=== PATIENT | female | born 1945 | race Two or more races ===

== ENCOUNTER → 2020-10-02 | Outpatient (CLI) | payer MEDICARE | END | disposition home or self-care (01) | LOC: MSC 14:30 | PROVIDERS: ATTEND Internal Medicine | DX: Z09 Encounter for follow-up examination after completed treatment for conditions other than malignant neoplasm (principal); Z86.73 Personal history of transient ischemic attack (TIA), and cerebral infarction without residual deficits; D63.8 Anemia in other chronic diseases classified elsewhere; E11.22 Type 2 diabetes mellitus with diabetic chronic kidney disease; I13.0 Hypertensive heart and chronic kidney disease with heart failure and stage 1 through stage 4 chronic kidney disease, or unspecified chronic kidney disease; N18.4 Chronic kidney disease, stage 4 (severe); I50.9 Heart failure, unspecified; Z79.4 Long term (current) use of insulin; Z87.891 Personal history of nicotine dependence; E89.0 Postprocedural hypothyroidism; R13.10 Dysphagia, unspecified; R32 Unspecified urinary incontinence; G31.9 Degenerative disease of nervous system, unspecified; K21.9 Gastro-esophageal reflux disease without esophagitis; E66.9 Obesity, unspecified ==

== ENCOUNTER 2023-07-25 22:39 | Inpatient (IN) | payer MEDICARE, OTHER ==
[~2023-07-25] VITALS: Ht 160 cm; Wt 72.7 kg
[2023-07-26 00:53] LABS: CALCIUM, SERUM 10.3 mg/dL (8.5-10.1); CARBON DIOXIDE 28 mmol/L (21-32); CHLORIDE 90 mmol/L (98-107); CREATININE 3.5 mg/dL (0.6-1.3); GLUCOSE 189 mg/dL (74-106); POTASSIUM 5.1 mmol/L (3.5-5.1); SODIUM SERUM 127 mmol/L (136-145); UREA NITROGEN, BLOOD 65 mg/dL (7-18)
[2023-07-26 01:05] LABS: BASOPHILS % (AUTO) 0.3 % (0.0-2.0); EOSINOPHILS # (AUTO) 0.1 K/uL (0.0-0.7); EOSINOPHILS % (AUTO) 3.4 % (0.0-6.0); HEMATOCRIT 37 % (33-45); HEMOGLOBIN 12.2 g/dL (11.5-14.8); LYMPHOCYTES # (AUTO) 0.6 K/uL (0.8-4.8); LYMPHOCYTES % (AUTO) 21.1 % (20.0-44.0); MEAN CORPUSCULAR HEMOGLOBIN 28 PG (26.0-33.0); MEAN CORPUSCULAR HGB CONC 33 g/dl (31.0-36.0); MEAN CORPUSCULAR VOLUME 87 fL (82-100); MONOCYTES # (AUTO) 0.4 K/uL (0.1-1.30); NEUTROPHILS # (AUTO) 1.9 K/uL (1.8-8.9); NEUTROPHILS % (AUTO) 61.2 % (43.0-81.0); RED CELL DISTRIBUTION WIDTH 21.9 % (11.5-15.0)
[2023-07-26 01:08] LABS: ALANINE AMINOTRANSFERASE 39 U/L (12-78); ALBUMIN 3.1 g/dL (3.4-5.0); ALKALINE PHOSPHATASE 630 U/L (46-116); ASPARTATE AMINOTRANSFERASE 73 U/L (15-37); BILIRUBIN,DIRECT 0.4 mg/dL (0.0-0.2); NT-PRO BNP > 25000 pg/mL (0-125)
[2023-07-26 01:10] LABS: INR 1.27 (0.91-1.10); PROTHROMBIN TIME 13.3 SECS (9.2-11.1)
[2023-07-26 01:12] LABS: PLATELET COUNT (AUTO) 43 K/uL (150-450)
[2023-07-26] MEDS ORDERED: FUROSEMIDE 40 MG/4 ML VIAL IV ONE (01:30)
[2023-07-26] MEDS ORDERED: FUROSEMIDE 40 MG/4 ML VIAL ONE (01:31)
[2023-07-26 02:09] LABS: EOSINOPHILS % (MANUAL) 2 % (0-4); LYMPHOCYTES % (MANUAL) 24 % (16-48); MONOCYTES % (MANUAL) 8 % (0-11.0); NEUTROPHILS % (MANUAL) 66 (42-76)
[2023-07-26 02:10] LABS: ANISOCYTOSIS 1+; OVALOCYTES 1+; PLATELET ESTIMATE DECREASED
[2023-07-26] MEDS ORDERED: ONDANSETRON HCL/PF 4 MG/2 ML VIAL IVP PRN (02:30)
[2023-07-26] MEDS ORDERED: MORPHINE SULFATE INJ 2 MG/ML DISP.SYRIN IV PRN (02:30)
[2023-07-26] MEDS ORDERED: ACETAMINOPHEN 325 MG TABLET PO PRN (02:30)
[2023-07-26] MEDS ORDERED: DEXTROSE 50%-WATER 50 ML DISP.SYRIN IV PRN (02:30)
[2023-07-26 03:39] VITALS: BP 148/110; TEMP 97.5; O2SAT 100
[2023-07-26] MEDS: BLOOD SUGAR DIAGNOSTIC 1 EACH STRIP IN SCH ×4 (06:30→21:43)
[2023-07-26] MEDS: INSULIN REGULAR, HUMAN 100 UNIT/ML 3 ML VIAL SQ PRN ×2 (06:31→21:44)
[2023-07-26 08:00] VITALS: BP 182/56; TEMP 98.1; O2SAT 96
[2023-07-26] MEDS ORDERED: ZINC56.713 TP (08:41)
[2023-07-26] MEDS ORDERED: AMMO225L14 TP (08:41)
[2023-07-26] MEDS ORDERED: PANT40SU2 GT (08:41)
[2023-07-26] MEDS ORDERED: LEVO112T2 GT (08:41)
[2023-07-26] MEDS ORDERED: METO25TA20 GT (08:41)
[2023-07-26] MEDS ORDERED: QUET25TA GT (08:41)
[2023-07-26] MEDS ORDERED: AMLO-212 GT (08:41)
[2023-07-26] MEDS ORDERED: BISA10SU11 RC (08:41)
[2023-07-26] MEDS ORDERED: PREG25CA GT (08:41)
[2023-07-26] MEDS ORDERED: AMIO200T5 GT (08:41)
[2023-07-26] MEDS ORDERED: ACET650S26 GT (08:41)
[2023-07-26] MEDS ORDERED: VALB40CA2 GT (08:41)
[2023-07-26] MEDS ORDERED: AMIN30LI27 GT (08:41)
[2023-07-26] MEDS ORDERED: VALS80TA2 GT (08:41)
[2023-07-26] MEDS ORDERED: ONDA4TAB5 GT (08:41)
[2023-07-26] MEDS ORDERED: SENN-261 GT (08:41)
[2023-07-26] MEDS ORDERED: INSU100V11 SQ (08:41)
[2023-07-26] MEDS ORDERED: IPRA3AMP23 IH (08:41)
[2023-07-26] MEDS ORDERED: NUT.237L67 GT (08:41)
[2023-07-26] MEDS ORDERED: OXCA150T5 GT (08:41)
[2023-07-26] MEDS ORDERED: ATOR40TA GT (08:41)
[2023-07-26] MEDS ORDERED: DIVA125C5 GT (08:41)
[2023-07-26] MEDS ORDERED: HYDR-4076 GT ×2 (08:41)
[2023-07-26] MEDS: HEPARIN SODIUM, PORCINE 5000 UNITS/1 ML VIAL SQ SCH ×2 (09:00→21:43)
[2023-07-26 09:30] VITALS: BP 149/42; O2SAT 100
[2023-07-26] MEDS ORDERED: hydrALAZINE HCL 25 MG TABLET GT PRN (10:00)
[2023-07-26] MEDS: AMLODIPINE BESYLATE 5 MG TABLET GT SCH (10:00)
[2023-07-26] MEDS: METOPROLOL TARTRATE 25 MG TABLET GT SCH ×2 (10:00→17:00)
[2023-07-26] MEDS: hydrALAZINE HCL 25 MG TABLET GT SCH ×3 (10:00→17:00)
[2023-07-26] MEDS: VALSARTAN 80 MG TABLET GT SCH (10:00)
[2023-07-26] MEDS: LEVOTHYROXINE SODIUM 112 MCG TABLET GT SCH (10:41)
[2023-07-26] MEDS: OXCARBAZEPINE 150 MG TABLET GT SCH ×3 (10:41→18:03)
[2023-07-26] MEDS: PANTOPRAZOLE 40 MG/PACK PACK GT SCH (10:41)
[2023-07-26] MEDS: PREGABALIN 25 MG CAPSULE GT SCH ×2 (10:41→18:03)
[2023-07-26] MEDS: DIVALPROEX SODIUM 125 MG CAP.SPRINK GT SCH (10:41)
[2023-07-26 12:00] VITALS: BP 136/52; TEMP 98.1; O2SAT 96
[2023-07-26] MEDS: NEPRO 1,000 ML BOTTLE GT SCH (12:37)
[2023-07-26] MEDS ORDERED: NEPRO VAN 237 ML CAN GT SCH (13:00)
[2023-07-26 16:00] VITALS: BP 140/42; TEMP 98.1; O2SAT 96
[2023-07-26 20:00] VITALS: BP 163/48; TEMP 97.6; O2SAT 93
[2023-07-26] MEDS ORDERED: Medication Not On Formulary EA (Valbenazine Tosylate (Ingrezza) 40 MG) GT SCH (22:00)
[2023-07-27] VITALS: BP 160/71; TEMP 97.7; O2SAT 96
[2023-07-27 05:07] VITALS: BP 160/65; TEMP 97.8; O2SAT 95
[2023-07-27 05:53] LABS: BASOPHILS % (AUTO) 0.5 % (0.0-2.0); EOSINOPHILS # (AUTO) 0.1 K/uL (0.0-0.7); EOSINOPHILS % (AUTO) 2.6 % (0.0-6.0); HEMATOCRIT 34 % (33-45); HEMOGLOBIN 11.1 g/dL (11.5-14.8); LYMPHOCYTES # (AUTO) 0.7 K/uL (0.8-4.8); MEAN CORPUSCULAR HEMOGLOBIN 28 PG (26.0-33.0); MEAN CORPUSCULAR HGB CONC 32 g/dl (31.0-36.0); MEAN CORPUSCULAR VOLUME 86 fL (82-100); MONOCYTES # (AUTO) 0.5 K/uL (0.1-1.30); MONOCYTES % (AUTO) 12.7 % (2.0-12.0); NEUTROPHILS # (AUTO) 2.5 K/uL (1.8-8.9); NEUTROPHILS % (AUTO) 66.2 % (43.0-81.0); PLATELET COUNT (AUTO) 63 K/uL (150-450); RED BLOOD CELL COUNT(AUTO) 3.97 MIL/uL (4.0-5.2); RED CELL DISTRIBUTION WIDTH 21.3 % (11.5-15.0); WHITE BLOOD COUNT (AUTO) 3.7 K/uL (4.3-11.0)
[2023-07-27 06:07] LABS: ALANINE AMINOTRANSFERASE 49 U/L (12-78); ALBUMIN 2.7 g/dL (3.4-5.0); ALKALINE PHOSPHATASE 561 U/L (46-116); ASPARTATE AMINOTRANSFERASE 71 U/L (15-37); BILIRUBIN,TOTAL 0.9 mg/dL (0.2-1.0); CALCIUM, SERUM 9.4 mg/dL (8.5-10.1); CARBON DIOXIDE 29 mmol/L (21-32); CHLORIDE 98 mmol/L (98-107); GLUCOSE 151 mg/dL (74-106); MAGNESIUM 2.5 mg/dL (1.8-2.4); PHOSPHORUS 2.3 mg/dL (2.5-4.9); POTASSIUM 3.8 mmol/L (3.5-5.1); SODIUM SERUM 135 mmol/L (136-145); TOTAL PROTEIN, SERUM 7.1 g/dL (6.4-8.2); UREA NITROGEN, BLOOD 44 mg/dL (7-18)
[2023-07-27] MEDS: INSULIN REGULAR, HUMAN 100 UNIT/ML 3 ML VIAL SQ PRN ×4 (06:31→20:59)
[2023-07-27] MEDS: BLOOD SUGAR DIAGNOSTIC 1 EACH STRIP IN SCH ×4 (06:33→21:00)
[2023-07-27 07:17] LABS: BAND % (MANUAL) 1 % (0.0-5.0); EOSINOPHILS % (MANUAL) 2 % (0-4); LYMPHOCYTES % (MANUAL) 24 % (16-48); MONOCYTES % (MANUAL) 7 % (0-11.0); NEUTROPHILS % (MANUAL) 66 (42-76)
[2023-07-27 07:18] LABS: ANISOCYTOSIS 1+; PLATELET ESTIMATE DECREASED
[2023-07-27 08:00] VITALS: BP 191/64; TEMP 98.4; O2SAT 94
[2023-07-27] MEDS ORDERED: NEUTRA PHOS 1 POWD.PACKET PO ONE (08:30)
[2023-07-27] MEDS: HEPARIN SODIUM, PORCINE 5000 UNITS/1 ML VIAL SQ SCH ×2 (09:00→20:54)
[2023-07-27] MEDS: DIVALPROEX SODIUM 125 MG CAP.SPRINK GT SCH (10:01)
[2023-07-27] MEDS: hydrALAZINE HCL 25 MG TABLET GT SCH ×3 (10:01→17:00)
[2023-07-27] MEDS: VALSARTAN 80 MG TABLET GT SCH ×2 (10:02→17:59)
[2023-07-27] MEDS: METOPROLOL TARTRATE 25 MG TABLET GT SCH ×2 (10:02→17:00)
[2023-07-27] MEDS: PREGABALIN 25 MG CAPSULE GT SCH ×2 (10:02→18:00)
[2023-07-27] MEDS: OXCARBAZEPINE 150 MG TABLET GT SCH ×3 (10:03→18:00)
[2023-07-27] MEDS: AMLODIPINE BESYLATE 5 MG TABLET GT SCH (10:03)
[2023-07-27] MEDS: LEVOTHYROXINE SODIUM 112 MCG TABLET GT SCH (10:03)
[2023-07-27] MEDS: PANTOPRAZOLE 40 MG/PACK PACK GT SCH (10:03)
[2023-07-27 10:39] LABS: THYROID STIMULATING HORMONE 2.17 uIU/mL (0.358-3.74)
[2023-07-27 12:00] VITALS: BP 147/55; TEMP 99.1; O2SAT 100
[2023-07-27] MEDS: NEPRO 1,000 ML BOTTLE GT SCH (14:42)
[2023-07-27 16:00] VITALS: BP 165/58; TEMP 98.9; O2SAT 100
[2023-07-27 20:00] VITALS: BP 153/58; TEMP 97.5; O2SAT 100
[2023-07-28] VITALS (9 sets, daily range): BP systolic 136–182; BP diastolic 33–78; TEMP 97.5–98.7; O2SAT 100
[2023-07-28] MEDS: hydrALAZINE HCL IV 20 MG VIAL IV PRN (03:19)
[2023-07-28] MEDS: BLOOD SUGAR DIAGNOSTIC 1 EACH STRIP IN SCH ×4 (06:44→22:53)
[2023-07-28] MEDS: INSULIN REGULAR, HUMAN 100 UNIT/ML 3 ML VIAL SQ PRN ×3 (06:46→18:03)
[2023-07-28 07:17] LABS: BASOPHILS % (AUTO) 0.5 % (0.0-2.0); EOSINOPHILS # (AUTO) 0.1 K/uL (0.0-0.7); EOSINOPHILS % (AUTO) 3.3 % (0.0-6.0); HEMATOCRIT 36 % (33-45); HEMOGLOBIN 11.6 g/dL (11.5-14.8); LYMPHOCYTES # (AUTO) 0.6 K/uL (0.8-4.8); LYMPHOCYTES % (AUTO) 18.5 % (20.0-44.0); MEAN CORPUSCULAR HEMOGLOBIN 28 PG (26.0-33.0); MEAN CORPUSCULAR HGB CONC 32 g/dl (31.0-36.0); MEAN CORPUSCULAR VOLUME 87 fL (82-100); MONOCYTES # (AUTO) 0.5 K/uL (0.1-1.30); MONOCYTES % (AUTO) 13.4 % (2.0-12.0); NEUTROPHILS # (AUTO) 2.2 K/uL (1.8-8.9); NEUTROPHILS % (AUTO) 64.3 % (43.0-81.0); PLATELET COUNT (AUTO) 75 K/uL (150-450); RED BLOOD CELL COUNT(AUTO) 4.11 MIL/uL (4.0-5.2); RED CELL DISTRIBUTION WIDTH 21.6 % (11.5-15.0); WHITE BLOOD COUNT (AUTO) 3.4 K/uL (4.3-11.0)
[2023-07-28 07:55] LABS: ALANINE AMINOTRANSFERASE 49 U/L (12-78); ALBUMIN 2.9 g/dL (3.4-5.0); ALKALINE PHOSPHATASE 579 U/L (46-116); ASPARTATE AMINOTRANSFERASE 76 U/L (15-37); BILIRUBIN,TOTAL 0.9 mg/dL (0.2-1.0); CALCIUM, SERUM 9.9 mg/dL (8.5-10.1); CARBON DIOXIDE 25 mmol/L (21-32); CHLORIDE 101 mmol/L (98-107); CREATININE 2.9 mg/dL (0.6-1.3); GLUCOSE 148 mg/dL (74-106); MAGNESIUM 2.5 mg/dL (1.8-2.4); PHOSPHORUS 2.1 mg/dL (2.5-4.9); POTASSIUM 3.4 mmol/L (3.5-5.1); SODIUM SERUM 138 mmol/L (136-145); TOTAL PROTEIN, SERUM 7.4 g/dL (6.4-8.2); UREA NITROGEN, BLOOD 40 mg/dL (7-18)
[2023-07-28] MEDS ORDERED: QUETIAPINE FUMARATE 25 MG TABLET GT SCH (09:00)
[2023-07-28] MEDS: METOPROLOL TARTRATE 25 MG TABLET GT SCH ×2 (09:00→17:00)
[2023-07-28] MEDS: HEPARIN SODIUM, PORCINE 5000 UNITS/1 ML VIAL SQ SCH ×2 (09:00→22:07)
[2023-07-28] MEDS: NITROGLYCERIN 30 GM TUBE TP SCH ×2 (09:30→21:33)
[2023-07-28] MEDS: DIVALPROEX SODIUM 125 MG CAP.SPRINK GT SCH (10:24)
[2023-07-28] MEDS: OXCARBAZEPINE 150 MG TABLET GT SCH ×3 (10:25→18:05)
[2023-07-28] MEDS: VALSARTAN 80 MG TABLET GT SCH ×2 (10:25→17:00)
[2023-07-28] MEDS: PREGABALIN 25 MG CAPSULE GT SCH ×2 (10:25→18:05)
[2023-07-28] MEDS: LEVOTHYROXINE SODIUM 112 MCG TABLET GT SCH (10:26)
[2023-07-28] MEDS: AMLODIPINE BESYLATE 5 MG TABLET GT SCH (10:26)
[2023-07-28] MEDS: PANTOPRAZOLE 40 MG/PACK PACK GT SCH (10:26)
[2023-07-28 11:24] LABS: BAND % (MANUAL) 1 % (0.0-5.0); EOSINOPHILS % (MANUAL) 1 % (0-4); LYMPHOCYTES % (MANUAL) 21 % (16-48); MONOCYTES % (MANUAL) 6 % (0-11.0); NEUTROPHILS % (MANUAL) 71 (42-76); PLATELET ESTIMATE DECREASED
[2023-07-28] MEDS: hydrALAZINE HCL 25 MG TABLET GT SCH ×2 (12:19→17:00)
[2023-07-28] MEDS: NEPRO 1,000 ML BOTTLE GT SCH (23:57)
[2023-07-29 03:06] LABS: HEPATITIS B SURFACE AB Reactive (.)
[2023-07-29] MEDS: hydrALAZINE HCL IV 20 MG VIAL IV PRN (04:17)
[2023-07-29] MEDS: BLOOD SUGAR DIAGNOSTIC 1 EACH STRIP IN SCH ×2 (06:39→11:49)
[2023-07-29 08:00] VITALS: BP 144/77; TEMP 98; O2SAT 98
[2023-07-29] MEDS: NITROGLYCERIN 30 GM TUBE TP SCH (09:34)
[2023-07-29] MEDS: OXCARBAZEPINE 150 MG TABLET GT SCH ×2 (09:34→13:30)
[2023-07-29] MEDS: DIVALPROEX SODIUM 125 MG CAP.SPRINK GT SCH (09:34)
[2023-07-29] MEDS: PREGABALIN 25 MG CAPSULE GT SCH (09:34)
[2023-07-29] MEDS: LEVOTHYROXINE SODIUM 112 MCG TABLET GT SCH (09:34)
[2023-07-29] MEDS: PANTOPRAZOLE 40 MG/PACK PACK GT SCH (09:34)
[2023-07-29] MEDS: VALSARTAN 80 MG TABLET GT SCH (09:35)
[2023-07-29] MEDS: AMLODIPINE BESYLATE 5 MG TABLET GT SCH (09:35)
[2023-07-29] MEDS: METOPROLOL TARTRATE 25 MG TABLET GT SCH (09:35)
[2023-07-29] MEDS: hydrALAZINE HCL 25 MG TABLET GT SCH ×2 (09:38→13:00)
[2023-07-29] MEDS: HEPARIN SODIUM, PORCINE 5000 UNITS/1 ML VIAL SQ SCH (10:40)
[2023-07-29 16:00] VITALS: BP 121/63; TEMP 98.6; O2SAT 93
== END 2023-07-29 17:10 | DRG 291 ==
LOC: ER 22:53 → TELE 07-26 02:21 → MED 07-28 12:04
PROVIDERS: ATTEND Internal Medicine
PROC: 5A1D70Z Performance of Urinary Filtration, Intermittent, Less than 6 Hours Per Day (ICD-10-PCS; principal; 2023-07-26)
DX: I13.2 Hypertensive heart and chronic kidney disease with heart failure and with stage 5 chronic kidney disease, or end stage renal disease (principal); I50.33 Acute on chronic diastolic (congestive) heart failure; N18.6 End stage renal disease; R53.2 Functional quadriplegia; E87.1 Hypo-osmolality and hyponatremia; G93.40 Encephalopathy, unspecified; J96.10 Chronic respiratory failure, unspecified whether with hypoxia or hypercapnia; D64.9 Anemia, unspecified; D69.6 Thrombocytopenia, unspecified; E03.9 Hypothyroidism, unspecified; E11.22 Type 2 diabetes mellitus with diabetic chronic kidney disease; E66.01 Morbid (severe) obesity due to excess calories; E78.5 Hyperlipidemia, unspecified; G40.909 Epilepsy, unspecified, not intractable, without status epilepticus; K21.9 Gastro-esophageal reflux disease without esophagitis; Z86.73 Personal history of transient ischemic attack (TIA), and cerebral infarction without residual deficits; Z93.1 Gastrostomy status; Z99.2 Dependence on renal dialysis; I48.91 Unspecified atrial fibrillation; E83.52 Hypercalcemia; R74.8 Abnormal levels of other serum enzymes; L89.156 Pressure-induced deep tissue damage of sacral region; R53.1 Weakness; I25.10 Atherosclerotic heart disease of native coronary artery without angina pectoris; F03.90 Unspecified dementia, unspecified severity, without behavioral disturbance, psychotic disturbance, mood disturbance, and anxiety; M89.8X9 Other specified disorders of bone, unspecified site
CPT/HCPCS: 36415; 71045-TC; 80048-TC; 80053-TC; 80076-TC; 82962-TC; 83735-TC; 83880; 84100-TC; 84439-TC; 84443-TC; 84484-TC; 85025-TC; 85730-TC; 86706; 87081-TC; 87340; 90935-TC; 93307-TC; A6403; G0378; J0360; J1644; J1815; J1940; J7030